=== PATIENT | male | born 2000 | race Caucasian/White ===

== ENCOUNTER 2020-07-21 22:55 | Emergency (ER) | payer OTHER ==
[~2020-07-21] VITALS: Ht 193 cm; Wt 103.1 kg
--- NOTE | 2020-07-22 00:02 | PHYS DOC ---
Past History Past Medical History: No Pertinent History Past Surgical History: No Surgical History Alcohol Use: None Adult General Chief Complaint Chief Complaint: EARACHE/EAR PAIN HPI HPI Patient is a 20-year-old male with a past medical history significant for multiple ear infections when he was young who presents to the emergency department with a chief complaint of left-sided ear fullness concern for infection. Denies any headache, fever, sore throat, chest pain, shortness of breath, abdominal pain, nausea, vomiting. States it feels full in his left ear, and was concerned either for ear infection or eardrum damage or impaction. Review of Systems Review of Systems Review of systems otherwise unremarkable except noted in HPI Allergies Allergies Allergies Coded Allergies Type Severity Reaction Last Updated Verified No Known Drug Allergies 07/21/20 No Physical Exam Physical Exam Constitutional: Well developed, well nourished, no acute distress, non-toxic appearance. [] HENT: Normocephalic, atraumatic, Eyes: conjunctiva normal, no discharge. Bilateral tympanic membranes visible, relatively clear with probable old scarring but no signs of otitis media or otitis externa. Does have a large amount cerumen [] in the ear canal but does not appear impacted. Neck: Normal range of motion, no tenderness, supple, no stridor. [] Cardiovascular:Heart rate regular rhythm, no murmur [] Neurologic: Alert and oriented X 3, no focal deficits noted. [] Psychologic: Affect normal, judgement normal, mood normal. [] Current Patient Data Vital Signs Vital Signs Date Time Temp Pulse Resp B/P (MAP) Pulse Ox O2 Delivery O2 Flow Rate FiO2 07/21/20 22:55 97.9 66 16 136/77 (96) 100 Room Air EKG EKG [] Radiology/Procedures Radiology/Procedures [] Heart Score C/O Chest Pain: No Risk Factors: Risk Factors: DM, Current or recent (<one month) smoker, HTN, HLP, family history of CAD, obesity. Risk Scores: Risk Factors: DM, Current or recent (<one month) smoker, HTN, HLP, family history of CAD, obesity. Course & Med Decision Making Course & Med Decision Making Patient is a 20-year-old male who presents with left ear fullness Vital signs not concerning. Physical exam noted above. Discussed strategies for maintenance and cleaning of earwax at home. Gave recommendations to never put anything solid such as Q-tips or other foreign bodies in your ear as this could cause further impaction and/or damage of your tympanic membrane. Advised on multiple types of eardrops and light suctioning devices associated with this technique. Advised to follow-up on Friday with his primary care physician. Gave return precautions to the ED. Patient grateful, verbalized understanding and agreed with plan of discharge. [] Dragon Disclaimer Dragon Disclaimer This electronic medical record was generated, in whole or in part, using a voice recognition dictation system. Departure Departure: Impression: Primary Impression: Cerumen in auditory canal on examination Disposition: HOME / SELF CARE / HOMELESS Condition: GOOD Referrals: PCP,UNKNOWN (PCP) HERLINDA SANZ MD Patient Instructions: Cerumen Plug Additional Instructions: Please read all of the attached information very carefully. As discussed please do not stick anything in your ear such as Q-tips or similar items as this could impact or contact your cerumen and cause pain or even damage your tympanic membrane or perforated. As discussed, the drops [id number] the best option including Debrox and Murine. Please follow-up with your primary care physician first thing Friday morning to update on your ED visit. Please come back to emergency department immediately with new or concerning symptoms as discussed. WANDY CANO MD Jul 22, 2020 00:02
[2020-07-22 00:20] VITALS: BP 128/72
[2020-07-22] MEDS ORDERED: CARBAMIDE PEROXIDE 6.5% OTIC SOLUTION 15ML BOTTLE. AS ONE (00:30)
== END 2020-07-22 00:25 | disposition home or self-care (01) ==
LOC: ER 22:55
DX: H61.22 Impacted cerumen, left ear (principal)
CPT/HCPCS: 99282

== ENCOUNTER 2020-07-23 22:46 | Emergency (ER) | payer OTHER ==
[~2020-07-23] VITALS: Ht 185.4 cm; Wt 102.0 kg
[2020-07-23] MEDS ORDERED: HYDROcodone/APAP 5/325MG 1 TAB TABLET PO ONE (23:45)
--- NOTE | 2020-07-24 00:18 | RAD ---
CT MAXILLOFACIAL WITHOUT CONTRAST History: Reason: left parotid/ear pain w/swelling / Spl. Instructions: / History: Comparison: None. Technique: Noncontrast CT imaging was performed of the maxillofacial. Coronal and sagittal reconstruc tions were performed. Exposure: One or more of the following individualized dose reduction techniques were utilized for thi s examination: 1. Automated exposure control 2. Adjustment of the mA and/or kV according to patient size 3. Use of iterative reconstruction technique. Findings: Thickening along the left external auditory canal with stranding in the adjacent subcutaneous tissue s. No loculated fluid collection although evaluation is degraded on noncontrast examination. Debris w ithin the bilateral external auditory canals, left greater than right. Symmetric appearance of the parotid glands and submandibular glands. No acute fracture. Orbits are unremarkable. Paranasal sinuses and mastoid air cells are clear. Imaged intracranial contents are unremarkable. Impression: 1. Left periauricular inflammatory changes with thickening along the external auditory canal, may re present infection. No loculated fluid collection to suggest abscess. Electronically signed by: Clint Bustamante DO (07/24/2020 12:16 AM) [facility]
[2020-07-24 00:26] VITALS: BP 128/64
[2020-07-24] MEDS ORDERED: CIPR500T94 PO (00:33)
[2020-07-24] MEDS ORDERED: CIPR7.5D EACH EAR (00:33)
[2020-07-24] MEDS ORDERED: HYDR-2155 PO (00:34)
--- NOTE | 2020-07-24 00:35 | PHYS DOC ---
Past History Past Medical History: No Pertinent History Past Surgical History: No Surgical History Alcohol Use: None Adult General Chief Complaint Chief Complaint: EARACHE/EAR PAIN HPI HPI Patient is a 20-year-old male who presents with left ear pain. States it started a couple days ago, is 7 out of 10, sharp in nature with some radiation to the left side of his face. Denies any recent travel, traumas, fevers, eye pain or discharge, recent sinusitis or illnesses, pain or trouble swallowing, chest pain, shortness of breath, abdominal pain, nausea, vomiting. Review of Systems Review of Systems Review of systems otherwise unremarkable except noted in HPI Current Medications Current Medications Current Medications Medications (Trade) Dose Ordered Sig/Annie Start Time Stop Time Status Last Admin Dose Admin Acetaminophen/ Hydrocodone Bitart (Lortab 5/325) 2 tab 1X ONCE 07/23/20 23:45 07/23/20 23:46 DC 07/24/20 00:05 2 TAB Allergies Allergies Allergies Coded Allergies Type Severity Reaction Last Updated Verified No Known Drug Allergies 07/21/20 No Physical Exam Physical Exam Constitutional: Well developed, well nourished, no acute distress, non-toxic appearance. [] HENT: Normocephalic, atraumatic, bilateral tympanic membranes with some scarring but no signs of otitis media, left ear canal with what appears to be some debris and swelling suggestive of otitis externa, oropharynx moist, no oral exudates, nose normal. [] Eyes: PERRLA, EOMI, conjunctiva normal, no discharge. [] Neck: Normal range of motion, no tenderness, supple, no stridor. [] Cardiovascular:Heart rate regular rhythm, no murmur [] Lungs & Thorax: Bilateral breath sounds clear to auscultation [] Neurologic: Alert and oriented X 3, normal motor function, normal sensory function, no focal deficits noted. [] Psychologic: Affect normal, judgement normal, mood normal. [] Current Patient Data Vital Signs Vital Signs Date Time Temp Pulse Resp B/P (MAP) Pulse Ox O2 Delivery O2 Flow Rate FiO2 07/24/20 00:05 16 100 Room Air EKG EKG [] Radiology/Procedures Radiology/Procedures [] Heart Score C/O Chest Pain: No Risk Factors: Risk Factors: DM, Current or recent (<one month) smoker, HTN, HLP, family history of CAD, obesity. Risk Scores: Risk Factors: DM, Current or recent (<one month) smoker, HTN, HLP, family history of CAD, obesity. Course & Med Decision Making Course & Med Decision Making Patient is a 20-year-old male who presents with left ear pain Vital signs not concerning. Physical exam noted above. Patient given oral pain medication. CT max face with thickening along the left external auditory canal with stranding in adjacent tissues with no abscess noted and symmetric appearance of the parotid glands and submandibular glands. Exam and CT suggestive of otitis externa. Patient started on oral antibiotics and given prescription for antibiotic eardrops. Advised on pain control at home. Advised to follow-up tomorrow with his primary care physician to discuss ED visit and set up a follow-up. Gave strict return precautions to the ED. Patient grateful, verbalized understanding and agreed with plan of discharge. [] Dragon Disclaimer Dragon Disclaimer This electronic medical record was generated, in whole or in part, using a voice recognition dictation system. Departure Departure: Impression: Primary Impression: Otitis externa Disposition: HOME / SELF CARE / HOMELESS Condition: GOOD Referrals: PCP,UNKNOWN (PCP) HERLINDA SANZ MD Patient Instructions: Otitis Externa Additional Instructions: Please read all the attached information very carefully. Please take your oral antibiotics as prescribed. Please use your antibiotic eardrops as prescribed. You can use your prescription pain medicine as well as ibuprofen as needed for pain control at home as well as ice. Please follow-up with your primary care physician tomorrow to update on ED visit and set up a follow-up visit. Please come back to the ED with new or concerning symptoms as discussed. Scripts Hydrocodone Bit/Acetaminophen (HYDROCODONE-APAP 5-325 ) 1 Each Tablet 1 TAB PO PRN Q6HRS PRN for PAIN for 3 Days, #12 TAB 0 Refills Prov: WANDY CANO MD 07/24/20 Ciprofloxacin Hcl/Dexameth (CIPRODEX OTIC SUSPENSION) 7.5 Ml Drops.susp 4 DROP EACH EAR BID for otitis externa for 7 Days, #7.5 ML Prov: WANDY CANO MD 07/24/20 Ciprofloxacin Hcl (CIPRO) 500 Mg Tablet 1 TAB PO BID for otitis externa for 5 Days, #10 TAB 0 Refills Prov: WANDY CANO MD 07/24/20 WANDY CANO MD Jul 24, 2020 00:35
[2020-07-24] MEDS ORDERED: CIPROFLOXACIN HCL 500 MG TABLET PO ONE (01:00)
== END 2020-07-24 00:40 | disposition home or self-care (01) ==
LOC: ER 22:46
DX: H60.92 Unspecified otitis externa, left ear (principal)
CPT/HCPCS: 70486; 99284-25

== ENCOUNTER 2020-09-11 01:52 | Emergency (ER) | payer OTHER ==
[~2020-09-11] VITALS: Ht 193 cm; Wt 102.0 kg
[~2020-09-11 01:52] MED LIST: CIPR500T94 PO; CIPR7.5D EACH EAR; HYDR-2155 PO
[2020-09-11 02:00] VITALS: BP 139/79
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
[2020-09-11] MEDS ORDERED: CEPHALEXIN 250 MG CAPSULE PO ONE (02:15)
[2020-09-11] MEDS ORDERED: oxyCODONE/APAP 5/325 1 TAB TABLET PO ONE (02:15)
[2020-09-11] MEDS ORDERED: CEPH500C PO (02:21)
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
== END 2020-09-11 02:43 | disposition home or self-care (01) ==
LOC: ER 01:52
DX: S00.81XA Abrasion of other part of head, initial encounter (principal); M25.511 Pain in right shoulder; Y08.89XA Assault by other specified means, initial encounter; Y93.89 Activity, other specified; Y92.89 Other specified places as the place of occurrence of the external cause; Y99.8 Other external cause status
CPT/HCPCS: 73030; 99283